=== PATIENT | male | born 1950 | race Caucasian/White ===

== ENCOUNTER → 2024-06-28 14:50 | Outpatient (REF) | payer MEDICARE, SELFPAY | LOC: RAD 14:50 | PROVIDERS: ATTENDING PHYSICIAN Physician Assistant | DX: R20.2 Paresthesia of skin (principal); M79.604 Pain in right leg; M79.605 Pain in left leg; G89.29 Other chronic pain; M54.41 Lumbago with sciatica, right side; M54.42 Lumbago with sciatica, left side | CPT/HCPCS: 72110 ==

== ENCOUNTER → 2024-10-31 06:55 | Outpatient (REF) | payer MEDICARE, SELFPAY ==
[2024-10-31 08:26] LABS: Hematocrit 47.3 % (39.0-52.0); Hemoglobin 15.8 g/dL (13.0-18.0); Mean Corp Hgb Conc. 33.4 g/dL (33.0-37.0); Mean Corpuscular Volume 87.9 fL (80.0-94.0); Nucleated Red Blood Cells % 0 % (-); Platelet Count 267 10^3/uL (130-400); Red Cell Dist. Width 12.7 % (11.5-14.5)
[2024-10-31 09:44] LABS: ALT (SGPT) 33 U/L (0-50); AST (SGOT) 29 U/L (17-59); Albumin 4.5 g/dl (3.5-5.0); Alkaline Phosphatase 66 U/L (38-126); Blood Urea Nitrogen 17 mg/dl (9-20); Calcium 9.8 mg/dl (8.4-10.2); Carbon Dioxide 30 mmol/L (22-30); Chloride 104 mmol/L (98-107); Glucose 96 mg/dl (70-99); HDL Cholesterol 44 mg/dl; LDL Cholesterol, Calculated 137 mg/dl; Potassium 4.7 mmol/L (3.5-5.1); Sodium 138 mmol/L (135-145); Total Protein 7.5 g/dl (6.3-8.2); Very Low Density Lipoprotein 44 mg/dl (0-30); eGFR > 60.00
== END ==
LOC: REG 06:55
PROVIDERS: ATTENDING PHYSICIAN Physician Assistant
DX: M17.0 Bilateral primary osteoarthritis of knee (principal); K21.9 Gastro-esophageal reflux disease without esophagitis; H35.30 Unspecified macular degeneration; G47.33 Obstructive sleep apnea (adult) (pediatric); E78.2 Mixed hyperlipidemia; E66.09 Other obesity due to excess calories; C67.2 Malignant neoplasm of lateral wall of bladder; C61 Malignant neoplasm of prostate; Z68.31 Body mass index [BMI] 31.0-31.9, adult; L82.1 Other seborrheic keratosis
CPT/HCPCS: 36415; 80053; 80061; 85025

== ENCOUNTER → 2024-11-02 07:42 | Outpatient (REF) | payer MEDICARE, SELFPAY | LOC: RAD 07:42 | PROVIDERS: ATTENDING PHYSICIAN Internal Medicine Gastroenterology; FAMILY PHYSICIAN Family Medicine | DX: K57.32 Diverticulitis of large intestine without perforation or abscess without bleeding (principal) | CPT/HCPCS: 74176 ==